=== PATIENT | female | born 2000 | race Caucasian/White ===

== ENCOUNTER 2024-12-25 20:50 | Emergency (ER) | payer BC, MEDICAID, SELFPAY ==
[2024-12-25 20:51] VITALS: BMI 40.3
[2024-12-25 21:47] VITALS: BP 138/96; PULSE 130; RESP 18; TEMP 37.1; O2SAT 96
--- NOTE | 2024-12-25 22:02 | PD.EDRME ---
Rapid Medical Screening Exam [facility] Arrival date/time: 12/25/24 20:50 24F with no significant PMH presents to ED with 2 days of N/V, gen ab pain/cramping, and non-bloody diarrhea. Chief Complaint: Nausea/Vomiting/Diarrhea Vital signs: Vital Signs Temperature 98.7 F 12/25/24 21:47 Pulse Rate 130 H 12/25/24 21:47 Respiratory Rate 18 12/25/24 21:47 Blood Pressure 138/96 H 12/25/24 21:47 Pulse Oximetry (%) 96 12/25/24 21:47 Oxygen Delivery Method Room Air 12/25/24 21:47
[2024-12-25] MEDS: ONDANSETRON ODT 4 MG TABRAP PO (22:19)
[2024-12-25 22:24] LABS: Lactate (Lactic Acid) 1.4 mMol/L (0.4-2.0)
[2024-12-25 22:31] LABS: Basophils % (Auto) 0 % (0-2.5); Eosinophils % (Auto) 0 % (0-10); Hematocrit 45.4 % (36.0-46.0); Immature Granulocytes % (Auto) 0 % (0-0); Immature Granulocytes Auto 0.05 Thou/mm3 (0.00-0.00); Lymphocytes # (Auto) 0.5 Thou/mm3 (1.0-4.8); Lymphocytes % (Auto) 3 % (10-50); Mean Corpuscular HGB Conc 35.2 g/dl (31.0-37.0); Mean Corpuscular Hemoglobin 28.6 pg (25.0-35.0); Mean Corpuscular Volume 81 fL (80-100); Monocytes # (Auto) 0.3 Thou/mm3 (0.0-0.8); Monocytes % (Auto) 2 % (0-12); Neutrophils # (Auto) 16.7 Thou/mm3 (1.8-7.7); Neutrophils % (Auto) 95 % (37-80); Nucleated Red Blood Cell % 0 /100 WBC (0); Platelet Count 358 Thou/mm3 (140-440); RDW Standard Deviation 38.4 fL (36.4-46.3); Red Blood Count 5.59 Miln/mm3 (4.00-5.20); White Blood Count 17.6 Thou/mm3 (3.6-11.0)
[2024-12-25 22:47] LABS: Collection Type, Urine Clean Catch
[2024-12-25 22:53] LABS: Bilirubin,Urine Negative (Negative); Blood,Urine Negative (Negative); Clarity,Urine Clear (Clear/Hazy); Color,Urine Yellow (Lt Yel-Yel); Glucose, Urine Negative (Negative); HCG Qualitative,Urine Negative; Ketones,Urine 2+ (Negative); Leukocyte Esterase,Urine Negative (Negative); Nitrite,Urine Negative (Negative); PH,Urine 5.5 (5.0-7.0); Protein,Urine 1+ (Neg - Trace); RBC,Urine 5 /hpf (0-3); Specific Gravity,Urine 1.036 (1.001-1.035); Squamous Epithelial Cell,Urine 1 /hpf (0-5); Urobilinogen,Urine Negative mg/dL (0.0-1.0); WBC,Urine 1 /hpf (0-5)
[2024-12-25 23:02] LABS: Amphetamine/Methamp Scrn,U Negative (Negative); Barbiturate Screen,Urine Negative (Negative); Benzodiazepines Screen,Urine Negative (Negative); Benzoylecgonine Screen, Ur Negative (Negative); Fentanyl Screen,Urine Negative (Negative); Opiate Screen,Urine Negative (Negative); THC Screen,Urine Positive (Negative)
[2024-12-25 23:19] LABS: Alanine Aminotransferase 21 U/L (10-49); Albumin, Serum 4.7 gm/dL (3.5-5.0); Alkaline Phosphatase 82 U/L (46-116); Anion Gap 13 (7-16); Aspartate Amino Transferase 18 U/L (0-34); BUN/Creatinine Ratio 14 Ratio (12-20); Bilirubin,Total 0.7 mg/dL (0.3-1.2); Blood Urea Nitrogen 11 mg/dL (9-23); Calcium 9.8 mg/dL (8.3-10.6); Calcium (Corrected) 9.8 mg/dL (8.5-10.1); Chloride 104 mMol/L (98-107); Creatinine (Component) 0.8 mg/dL (0.6-1.3); Estimated Creatinine Clearance 146.7 mL/min (>60); Globulin 4.5 gm/dL (2.3-3.5); Glucose 118 mg/dL (74-106); Lipase 31 U/L (12-53); Osmolality,Calculated 270 (275-295); Potassium 4.2 mMol/L (3.4-5.1); Sodium 135 mMol/L (136-145); Total Protein 9.2 gm/dL (5.7-8.2); eGFR > 60 See Note
[2024-12-26] VITALS (23 sets, daily range): BP systolic 102–158; BP diastolic 69–114; PULSE 88–124; RESP 12–21; TEMP 36.5–36.6; O2SAT 95–100
--- NOTE | 2024-12-26 01:10 | PD.EDNV ---
Nausea/Vomit./Diarrhea-RME/HPI General Chief complaint: Nausea/Vomiting/Diarrhea Stated complaint: N/V/D Arrival date/time: 12/25/24 20:50 RME / HPI RME / HPI Narrative: 12/25/24 20:50 24F with no significant PMH presents to ED with 2 days of N/V, gen ab pain/cramping, and non-bloody diarrhea. ------- Dr. Abdi?s Main ED Evaluation: 24yo female with no significant past medical history presents to the ED for a chief complaint of epigastric pain. Patient states she's had intermittent sharp abdominal pain since Sunday, rating the highest levels of pain a 8-9 out of 10 in severity. She currently rates her pain a 6-10 out of severity. She was seen by her PCP at 1200 today and had a H. pylori test done. She states after she got home, she started having significant nonbloody N/V/D and has been unable to keep anything down. She took Pepto Bismol and Imodium without any alleviation of symptoms, so she came in for evaluation. She endorses associated lower back pain. She denies any fever, chills, UTI symptoms or any other associated symptoms. She is not on any daily medications. No PSH. Denies any possibility of being . No known allergies. Related Data Previous Rx's ?Medication ?Instructions ?Recorded naproxen 500 mg tablet (Naprosyn) 500 mg PO BID PRN pain #60 tabs 04/30/19 ondansetron 4 mg disintegrating 4 mg PO Q6H PRN nausea and 12/26/24 tablet vomiting #14 tabs Allergies Allergy/AdvReac Type Severity Reaction Status Date / Time No Known Allergies Allergy Verified 12/26/24 08:12 Review of Systems Review of Systems Systems Reviewed: All systems reviewed, normal except as documented Narrative Review of Systems: Gen: No fever, no chills, no weight loss EYES: No discharge, no visual changes, no pain HEENT: No ear pain, no congestion, no sore throat PULM: No shortness of breath, no cough, no congestion CV: No chest pain, no dyspnea on exertion, no palpitations GI: + nausea, + vomiting, + diarrhea, + pain, no constipation : No frequency, no urgency, no dysuria Musc/skel: No joint pain, + back pain Skin: No rash. Warm and dry. Psyc: No hallucinations, no depression Heme/Lymph: No easy bleeding or bruising tendencies Neuro: No weakness, no headache Past Medical History Past Medical History CARDIAC: Negative Congestive Heart Failure RESPIRATORY: Negative Chronic Obstructive Pulmonary Disease (COPD) GENITOURINARY: Negative Renal Disease ENDOCRINE: Negative Diabetes Mellitus Type 1 or Diabetes Mellitus Type 2 Social History SMOKING STATUS: Current every day smoker ED Exam Narrative Physical exam: GENERAL APPEARANCE: alert and oriented x 4, well-developed, well-nourished, no acute distress VITALS: All vitals were reviewed and the pulse ox is 97% on room air, which is normal according to my interpretation. HEENT: Normocephalic, atraumatic; pupils equal, round, reactive to light; EOMI; mucous membranes pink, moist; oropharynx clear NECK: Supple LUNGS: CTABL; no wheezes, no rales, no rhonchi HEART: Tachycardic, regular rhythm; normal S1, S2; no murmurs ABDOMEN: non distended; normal BS; soft, epigastric and RUQ tenderness with positive Mendoza sign, RLQ tenderness, voluntary guarding, no rebound; no masses, no organomegaly, no hernia BACK: no CVA tenderness EXTREMITIES: atraumatic; no edema NEUROLOGIC: awake; alert and oriented x4; cranial nerves II-XII grossly intact; no focal sensory or motor deficits PSYCHIATRIC: appropriate mood and affect SKIN: warm, dry, normal color; no rashes Course Quality Measures none Orders Category Date Time Status CT Screening NOW Care 12/26/24 01:13 Completed 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 Care 12/26/24 01:12 Completed Continuous Pulse Oximetry STAT Care 12/26/24 01:12 Completed EKG (ED ONLY) *Do not use* NOW Care 12/26/24 01:[address] abdomen pelvis w con Stat Exams 12/26/24 01:13 Completed EKG (ED Only) Stat Exams 12/26/24 01:11 Draft US gall bladder Stat Exams 12/26/24 01:13 Completed Blood Culture (Lab) Stat Lab 12/26/24 01:27 Completed CBC Stat Lab 12/25/24 22:17 Completed CMP [Comprehensive Metabolic Panel] Stat Lab 12/25/24 22:17 Completed Drug Screen,Urine Stat Lab 12/25/24 22:30 Completed HCG Qualitative,Urine Stat Lab 12/25/24 22:30 Completed Lactate (Lactic Acid) Stat Lab 12/25/24 22:17 Completed Lipase Stat Lab 12/25/24 22:17 Completed Magnesium Stat Lab 12/26/24 01:27 Completed Prolactin* Stat Lab 12/26/24 01:27 Completed UA [Urinalysis] Stat Lab 12/25/24 22:30 Completed HYDROmorphone INJ [Dilaudid Inj] Med 12/26/24 01:15 Discontinued 0.5 mg IVP PRN HYDROmorphone INJ [Dilaudid Inj] Med 12/26/24 01:16 Discontinued 0.5 mg IVP X1 ONE Ondansetron Inj [Zofran Inj] Med 12/26/24 01:32 Discontinued 4 mg IV X1 ONE Ondansetron Odt [Zofran Odt] Med 12/25/24 22:01 Discontinued 4 mg PO X1 ONE Piper/Tazo 3.375 gm [Zosyn] 50 ml Med 12/26/24 01:20 Discontinued IV X1 Sodium Chloride 0.9% 1000 ml [Ns] 1,000 ml Med 12/26/24 01:11 Discontinued IV 999 mls/hr Sodium Chloride 0.9% 1000 ml [Ns] 1,000 ml Med 12/26/24 01:19 Discontinued IV 999 mls/hr Sodium Chloride 0.9% 1000 ml [Ns] 1,000 ml Med 12/26/24 04:50 Discontinued IV 999 mls/hr Reevaluation(s) Reevaluation #1: On re-evaluation, patient's blood pressure has improved to 114/82 with a heart rate of 100. She states she feels significantly better compared to when she initially came in, although, she has not urinated much. Additional liter of IVF ordered. Time: 04:46 Vital Signs Vital signs: Vital Signs Temperature 98.7 F 12/25/24 21:47 Pulse Rate 130 H 12/25/24 21:47 Respiratory Rate 18 12/25/24 21:47 Blood Pressure 138/96 H 12/25/24 21:47 Pulse Oximetry (%) 96 12/25/24 21:47 Oxygen Delivery Method Room Air 12/25/24 21:47 Nausea/Vomiting/Diarrhea MDM Narrative MDM Narrative:: Scribe Attestation: 12/26/24 - Maria Del Carmen Pickard am scribing for and in the presence of Dr. Abdi. Patient data External records reviewed:: [facility] previous records (Per chart review, patient has no relevant previous ED visits.) Clinical information provided by:: patient Social determinants that could affect healthcare access:: none Patient has the following chronic illnesses:: none How is presenting disease/condition affected by chronic disease/condition?: no chronic disease Evaluation data The following diagnostics were reviewed and interpreted by me:: lab results, radiology exam(s) and EKG tracing(s) Lab and/or radiology exams considered but not ordered:: none Interpretation Summary: WBC count is elevated at 17.6 with a left shift, CMP is normal, Lactic Acid is normal, Lipase is normal, Anion Gap is 17, HCG is negative, UDS is positive for marijuana, according to my interpretation. EKG done at 0123, sinus tachycardia, rate of 107, normal axis, no ectopy, no acute ischemia, according to my interpretation. Telerad Preliminary Report Draft Patient: KAMRAN BRIGHT Record#: [id number] Birthdate: 2000 Age/Sex: 24 / F Location: [facility] Attending Dr: Ordering Physician: Date of Service: Procedure(s): Accession Number(s): cc: ~ CT scan of the abdomen and pelvis with intravenous contrast (axial sections with sagittal and coronal reformats). December 26, 2024 at 0203 hours Clinical History: Right lower quadrant pain. Comparison: No prior study is available for comparison. Findings: Bibasilar streaky atelectasis is present. There is an 8 mm perifissural nodular density in the right middle lobe, possibly lymph node. There is mild hepatomegaly. The gallbladder, pancreas, spleen, kidneys and adrenals are unremarkable. No evidence of bowel obstruction. The appendix is within normal limits. There is no mesenteric or retroperitoneal adenopathy. The urinary bladder is unremarkable. There are small follicles in the left ovary. There is no free fluid or free air. The osseous structures are unremarkable. Impression: No evidence of appendicitis or other acute intra-abdominal/pelvic pathology. Other findings as described above. Report Electronically Signed By: Oleg Jerez 12/26/2024 4:30:39 AM [EST] Telerad Preliminary Report Draft Patient: KAMRAN BRIGHT Record#: [id number] Birthdate: 2000 Age/Sex: 24 / F Location: [facility] Attending Dr: Ordering Physician: Date of Service: Procedure(s): Accession Number(s): cc: ~ Gallbladder ultrasound. December 26, 2024 at 0239 hours Clinical history: Epigastric/ right upper quadrant pain. Comparison: No prior study is available for comparison. Findings: The evaluation is limited due to body habitus. There is mild hepatomegaly. The visualized liver is normal in echogenicity without mass or ductal dilatation. No gallbladder calculus, wall thickening or pericholecystic fluid is identified. There is a possible 0.5 cm polyp in the gallbladder. Sonographic Mendoza sign is negative as per the technologist's note. The common duct is normal in caliber at 3 mm. No free fluid is demonstrated on the submitted images. The pancreas is unremarkable to extent visualized. The inferior vena cava and portal vein are patent. Impression: No evidence of cholelithiasis or cholecystitis. Possible 0.5 cm polyp in the gallbladder. Other findings as described above. Report Electronically Signed By: Oleg Jerez 12/26/2024 4:30:47 AM [EST] Medications / Prescriptions Medications / Prescriptions considered but not ordered:: none Medication administrations:: Medication Administration History Discontinued Medications Hydromorphone HCl (Hydromorphone Inj 2 Mg/Ml Vial) 0.5 mg IVP PRN MORENA Stop: 12/31/24 01:14 Hydromorphone HCl (Hydromorphone Inj 2 Mg/Ml Vial) 0.5 mg IVP X1 ONE Stop: 12/26/24 01:17 Last Admin: 12/26/24 01:40 Dose: 0.5 mg Documented By: DON Sodium Chloride (Ns) 1,000 mls @ 999 mls/hr IV .Q1H1M ONE Stop: 12/26/24 02:11 Last Infusion: 12/26/24 03:11 Dose: Infused Documented By: Admin: 12/26/24 01:42 Dose: 999 mls/hr Documented By: DON Piperacillin/Tazobactam/Dextrose (Zosyn) 50 mls @ 100 mls/hr IV X1 ONE Stop: 12/26/24 01:49 Last Infusion: 12/26/24 02:25 Dose: Infused Documented By: Admin: 12/26/24 01:41 Dose: 100 mls/hr Documented By: DON Sodium Chloride (Ns) 1,000 mls @ 999 mls/hr IV .Q1H1M ONE Stop: 12/26/24 02:19 Last Infusion: 12/26/24 03:11 Dose: Infused Documented By: Admin: 12/26/24 01:42 Dose: 999 mls/hr Documented By: DON Sodium Chloride (Ns) 1,000 mls @ 999 mls/hr IV .Q1H1M ONE Stop: 12/26/24 05:50 Last Infusion: 12/26/24 07:14 Dose: Infused Documented By: Admin: 12/26/24 05:28 Dose: 999 mls/hr Documented By: DON Ondansetron HCl (Ondansetron Odt 4 Mg Tabrap) 4 mg PO X1 ONE; Protocol Stop: 12/25/24 22:02 Last Admin: 12/25/24 22:19 Dose: 4 mg Documented By: LILIA Ondansetron HCl (Ondansetron Inj 2 Mg/Ml Inj 2 Ml) 4 mg IV X1 ONE; Protocol Stop: 12/26/24 01:33 Last Admin: 12/26/24 01:47 Dose: 4 mg Documented By: DON see above Consultations Consultation(s) initiated? (list below): No Diagnosis Nausea Differential Diagnosis: drug-induced nausea and vomiting, dehydration and other (cholelithiasis, cholecystitis, pancreatitis, appendicitis) Most likely diagnosis given after review of the tests above:: see below Admission Indicated Admission indicated?: not indicated Admission Request Was there a request for admission?: No Disposition Plan Disposition Plan: Discharge Discharge Attestation Discharge Attestation: The patient and all family members were given an opportunity to ask questions and understood the discharge instructions. Discharge instructions specifically effects, indications for sooner follow up or return to the emergency department, and the expected course of current diagnosis. Patient condition: Stable Discharge Plan Plan Patient Disposition: HOME (Self Care) Disposition Comment: Stable for discharge Patient condition on transfer: Stable Prescriptions/Referrals Prescriptions/Med Rec: New ondansetron 4 mg tablet,disintegrating 4 mg PO Q6H PRN (Reason: nausea and vomiting) Qty: 14 0RF No Action naproxen [Naprosyn] 500 mg tablet 500 mg PO BID PRN (Reason: pain) Qty: 60 0RF Referrals: Alba Knight, RELAY TECHNICIAN [Primary Care Provider] - In 1 week Problem List Clinical Impression: Vomiting, Diarrhea Patient/Caregiver Discharge Instructions Discharge Activity: activity as tolerated Education Materials: Self-Care for Vomiting and Diarrhea, ED Diarrhea, Unknown Cause, ED Diet for Vomiting or ..., ED Vomiting (Adult) Additional Instructions: Return to the emergency department for any worsening or any further medical problems Please follow-up with your primary care doctor within the next several days. Tonight your test showed that you are not having an acute appendicitis or a gallbladder attack of any kind. However if you are worsening it is important that you come back. Print Language: Chadian Stand Alone Forms: Monse Award Info., Patient Portal Info Letter
--- NOTE | 2024-12-26 01:11 | EKG_ITS ---
[facility] (Formerly [facility]) Test Date: 2024-12-26 Pat Name: KAMRAN BRIGHT Department: Room: - Gender: Female [employer]: : 2000 Requested By: Meng Nuñez Order Number: [id number] Reading MD: Meng Nuñez Measurements Intervals [place] Rate: 107 P: 45 OR: 153 QRS: 36 QRSD: 80 T: 38 QT: 319 QTc: 426 Interpretive Statements SINUS TACHYCARDIA POSSIBLE LEFT ATRIAL ENLARGEMENT [-0.1mV P-WAVE IN V1/V2] LOW QRS VOLTAGE IN PRECORDIAL LEADS [QRS DEFLECTION < 1.0 mV IN CHEST LEADS] NONSPECIFIC T-WAVE ABNORMALITY ABNORMAL RHYTHM ECG No previous ECG available for comparison /store/S0/[id number].pdf
--- NOTE | 2024-12-26 01:13 | XR_ITS ---
Examination: CT abdomen with intravenous contrast CT pelvis with intravenous contrast 2-D coronal reconstructions 2-D sagittal reconstructions Date and time of exam:December 26, 2024 0232 hours INDICATIONS: Onset abdominal pain beginning 3 days ago. CTDI: vol (mGy) 19.7 DLP: (mGycm) 1158 Technique: Multiple axial sections of the abdomen and pelvis have been obtained. 64 slice high-resolution scanner used. 3 mm axial sections have been obtained, post intravenous injection 60 cc [id number] 2-D sagittal, coronal reconstructions obtained. Low dose protocols were performed. One or more of the following dose reduction techniques were used; automated exposure control, adjustment of the mA and/or KV according to patient size, use of iterative reconstruction technique. Findings: Hepatomegaly 20 cm Diffuse fatty infiltration throughout the liver no focal liver lesions No gallstones No splenic pancreatic or adrenal mass Aorta normal size No renal or ureteral calculi, no hydronephrosis No bowel obstruction Normal appendix No diverticulitis Anteverted uterus Left adnexal follicular cysts Urinary bladder intact IMPRESSION: Hepatomegaly, 20 cm with diffuse fatty infiltration throughout the liver No acute process in the abdomen or pelvis
--- NOTE | 2024-12-26 01:13 | XR_ITS ---
Examination: Abdomen sonogram, Limited Date and time of exam: December 26, 2024 0239 hours INDICATIONS: Nausea vomiting diarrhea abdominal pain beginning 2 days ago Technique: Real-time beck scale transabdominal sonographic images of the upper abdomen obtained. Findings: 5 mm gallbladder polyp Negative for cholelithiasis, negative for cholecystitis, gallbladder wall 0.3 cm Common bile duct 0.3 cm no stones Pancreatic head 2.5 cm Liver 16.2 cm fatty liver no focal liver lesions Normal hepatopedal portal venous flow Patent IVC IMPRESSION: 5 mm gallbladder polyp Negative for cholelithiasis, negative for cholecystitis Fatty liver
[2024-12-26] MEDS: HYDROmorphone INJ 2 MG/ML VIAL 0.5 MG IVP (01:40)
[2024-12-26] MEDS: PIPER/TAZO 3.375 GM 50 ML IV (01:41)
[2024-12-26] MEDS: SODIUM CHLORIDE 0.9% 1000 ML 1,000 ML 999 ML IV ×3 (01:42→05:28)
[2024-12-26] MEDS: ONDANSETRON INJ 2 MG/ML INJ 2 ML 4 MG IV (01:47)
[2024-12-26 02:00] LABS: Magnesium 1.7 mg/dL (1.6-2.6)
--- NOTE | 2024-12-26 04:31 | PRELIM_ITS ---
Gallbladder ultrasound. December 26, 2024 at 0239 hours Clinical history: Epigastric/ right upper quadrant pain. Comparison: No prior study is available for comparison. Findings: The evaluation is limited due to body habitus. There is mild hepatomegaly. The visualized liver is normal in echogenicity without mass or ductal dilatation. No gallbladder calculus, wall thickening or pericholecystic fluid is identified. There is a possible 0.5 cm polyp in the gallbladder. Sonographic Mendoza sign is negative as per the technologist's note. The common duct is normal in caliber at 3 mm. No free fluid is demonstrated on the submitted images. The pancreas is unremarkable to extent visualized. The inferior vena cava and portal vein are patent. Impression: No evidence of cholelithiasis or cholecystitis. Possible 0.5 cm polyp in the gallbladder. Other findings as described above. Report Electronically Signed By: Oleg Jerez 12/26/2024 4:30:47 AM [EST]
--- NOTE | 2024-12-26 04:31 | PRELIM_ITS ---
CT scan of the abdomen and pelvis with intravenous contrast (axial sections with sagittal and coronal reformats). December 26, 2024 at 0203 hours Clinical History: Right lower quadrant pain. Comparison: No prior study is available for comparison. Findings: Bibasilar streaky atelectasis is present. There is an 8 mm perifissural nodular density in the right middle lobe, possibly lymph node. There is mild hepatomegaly. The gallbladder, pancreas, spleen, kidneys and adrenals are unremarkable. No evidence of bowel obstruction. The appendix is within normal limits. There is no mesenteric or retroperitoneal adenopathy. The urinary bladder is unremarkable. There are small follicles in the left ovary. There is no free fluid or free air. The osseous structures are unremarkable. Impression: No evidence of appendicitis or other acute intra-abdominal/pelvic pathology. Other findings as described above. Report Electronically Signed By: Oleg Jerez 12/26/2024 4:30:39 AM [EST]
[2025-01-01 06:59] LABS: Prolactin* 9.8 ng/mL
== END 2024-12-26 08:07 | disposition home or self-care (01) ==
PROVIDERS: Physician Assistant; Emergency Provider Emergency Medicine; PCP Registered Nurse
DX: R11.2 Nausea with vomiting, unspecified (principal); R19.7 Diarrhea, unspecified; R00.0 Tachycardia, unspecified; R10.31 Right lower quadrant pain; D72.829 Elevated white blood cell count, unspecified
CPT/HCPCS: 36415; 74177; 76705; 80053; 80307; 81001; 81025; 83605; 83690; 83735; 84146; 85025; 87040; 93005; 96361; 96365; 96375; 99285; A4649; J2405; J2543; J3490; J7030; Q0162; Q9967

== ENCOUNTER → 2024-12-25 | Outpatient (CLI) | payer BC, MEDICAID, SELFPAY ==
[2024-12-25 17:19] LABS: Urea Breath Test Negative (Negative)
== END | disposition home or self-care (01) ==
LOC: COPL 13:14
PROVIDERS: PCP Family Medicine; Referring Provider Registered Nurse; Visit Provider Registered Nurse
DX: R10.13 Epigastric pain (principal)
CPT/HCPCS: 83013; 83014